=== PATIENT | female | born 1985 | race African-American/Black ===

== ENCOUNTER 2020-01-27 18:25 | Emergency (ER) | payer OTHER ==
[2020-01-27 18:41] VITALS: BP 132/95; PULSE 98; TEMP 98.4; BMI 35.6
[2020-01-27 19:00] LABS: HCG,QUALITATIVE URINE Negative
[2020-01-27] MEDS ORDERED: SODIUM CHLORIDE 1,000 ML IV STA (19:38)
[2020-01-27 20:08] LABS: INR 1.15 (0.82-1.09); PROTHROMBIN TIME (PATIENT) 12.8 SEC (10.2-13.0)
[2020-01-27 20:11] LABS: HEMATOCRIT 39.6 % (32.4-45.2); HEMOGLOBIN 13.5 GM/dl (10.7-15.3); MCHC 34.2 g/dl (32.0-36.0); MEAN CELL VOLUME 76.2 fl (80-96); MEAN PLT VOLUME 10.1 fl (7.5-11.1); PLATELET COUNT 339 K/MM3 (134-434); RDW 13.5 % (11.6-15.6)
[2020-01-27 20:13] LABS: ALBUMIN 4.4 g/dl (3.4-5.0); BILIRUBIN,TOTAL 0.6 mg/dl (0.2-1); CREATININE 0.6 mg/dl (0.55-1.3); TOT PROT 8.1 g/dl (6.4-8.2)
[2020-01-27 20:31] LABS: PLATELET ESTIMATE ADEQUATE
[2020-01-27] MEDS ORDERED: CEFTRIAXONE 250 MG in DEXTROSE 5%-WATER - 50 ML IVPB ONE (23:25)
[2020-01-27] MEDS ORDERED: KETOROLAC TROMETHAMINE 30 MG/1 ML VIAL IVPUSH ONE (23:26)
[2020-01-27] MEDS ORDERED: KETOROLAC TROMETHAMINE 30 MG/1 ML VIAL ONE (23:29)
[2020-01-27] MEDS ORDERED: DOXYCYCLINE HYCLATE 100 MG CAPSULE PO ONE ×2 (23:34→23:36)
--- NOTE | 2020-01-28 00:53 | PDOC ---
Documentation entered by Jose Enrique Prieto SCRIBE, acting as scribe for Cydney John MD. Cydney John MD: This documentation has been prepared by the scribe, Jose Enrique Prieto SCRIBE, under my direction and personally reviewed by me in its entirety. I confirm that the documentation accurately reflects all work, treatment, procedures, and medical decision making performed by me. History of Present Illness - General Chief Complaint: Pain Stated Complaint: PELVIS PAIN Time Seen by Provider: 01/27/20 19:23 History Source: Patient Exam Limitations: No Limitations - History of Present Illness Initial Comments: 01/27/20 19:58 The patient is a 34 year old female with a significant past medical history of prediabetes, ovarian cyst (previously drained), blood transfusions (secondary to heavy menses x2 17) who presents to the ED with continuous pelvic pain that radiates to the back with mild nausea which began five days ago. As per patient, her symptoms initially onset 5 days ago and she has taken ibuprofen, acetaminophen, motrin, excedrin, and midol without relief. As per patient at bedside, she was evaluated at urgent care today and advised to report to the ED for further evaluation for pain and sugar in urine. Patient reports LMP as 6/8 but denies possibility of being . Patient reports menstruation became regular about two years ago. Her last BM was this morning and described as normal. Patients last glucose testing was Feb 2019. Patient denies dysuria, vaginal discharge, constipation, and diarrhea. Allergies: NKDA Family Hx: Strong family history of DM (mother, grandmother, great grandmother, uncle, and cousins). 01/27/20 20:00 Past History - Medical History Allergies/Adverse Reactions: Allergies Allergy/AdvReac Type Severity Reaction Status Date / Time No Known Allergies Allergy Verified 01/27/20 18:35 Home Medications: Ambulatory Orders Doxycycline Hyclate [Vibramycin -] 100 mg PO BID #20 cap 01/27/20 COPD: No - Psycho-Social/Smoking History Smoking History: Current every day smoker Number of Cigarettes Smoked Daily: 6 Information on smoking cessation initiated: Yes - Substance Abuse Hx (Audit-C & DAST Scrn) How often the patient has a drink containing alcohol: Monthly or less How often the patient has six or more drinks on one occasion: Never Score: In Men: 4 or > Positive; In Women: 3 or > Positive: 1 Screen Result (Pos requires Nsg. Audit-10AR): Negative In the last yr the pt used illegal drug/Rx for NonMed reason: No Score: Yes response is considered Positive: 0 Screen Result (Positive result requires Nsg. DAST-10): Negative Review of Systems - Review of Systems Able to Perform ROS?: Yes Comments:: 01/27/20 19:58 CONSTITUTIONAL: Absent: fever, no chills, no fatigue EYES: Absent: visual changes ENT: Absent: ear pain, no sore throat CARDIOVASCULAR: Absent: chest pain, no palpitations RESPIRATORY: Absent: cough, no SOB GI: Absent: abdominal pain, no nausea, no vomiting, no constipation, no diarrhea GENITOURINARY: +pelvic pain Absent: dysuria, no frequency, no hematuria MUSKULOSKELETAL: Absent: back pain, no arthralgia, no myalgia SKIN: Absent: rash NEURO: Absent: headache All Other Systems: Reviewed and Negative *Physical Exam - Vital Signs Last Vital Signs Temp Pulse Resp BP Pulse Ox 98.4 F 98 H 16 132/95 99 01/27/20 18:34 01/27/20 18:34 01/27/20 18:34 01/27/20 18:34 01/27/20 18:34 - Physical Exam 01/27/20 20:15 GENERAL: The patient is awake, alert, and fully oriented, in no acute distress. HEAD:Normal with no signs of trauma. EYES: Pupils equal, round and reactive to light, extraocular movements intact, sclera anicteric, conjunctiva clear. ENT: +dry mucous membranes EXTREMITIES: Normal range of motion, no edema. ABDOMEN: + moderate Bilateral Lower Quadrant tenderness, Left Lower Quadrant mild rebound NEUROLOGICAL: Normal speech, normal gait. PSYCH: Normal mood, normal affect. SKIN: Warm, Dry, normal turgor, no rashes or lesions noted. PELVIC EXAM External genitalia normal without lesions. +Vaginal vault has scant whitish vaginal discharge without blood. Cervix is long and closed. + moderate cervical motion tenderness. Uterus is nontender and normal in size. + Mild Bilateral Adnexal tenderness without palpable masses. ED Treatment Course - LABORATORY CBC & Chemistry Diagram: 01/27/20 19:50 01/27/20 19:50 - ADDITIONAL ORDERS Additional order review: Laboratory Results 01/27/20 18:50 Urine Color Yellow Urine Appearance Clear Urine pH 5.5 Urine Protein Negative Urine Glucose (UA) 2+ H Urine Ketones Negative Urine Blood Negative Urine Nitrite Negative Urine Bilirubin Negative Urine Urobilinogen 0.2 Ur Leukocyte Esterase Negative Urine HCG, Qual Negative ED Progress Note - Progress Note Progress Note: As noted above, this 34-year-old woman with a history of prediabetes but otherwise healthy presents with few day history of lower abdominal/pelvic pain. No associated symptoms with the pain. No previous history of this type of pain and she denies hx PID/STD (patient denies multiple partners, stating that she has a steady girlfriend). She has a previous history of a left-sided ovarian cyst. Exam as noted with bilateral lower quadrant abdominal tenderness, left greater than right. Pelvic exam notable for significant cervical motion tenderness and left adnexal tenderness. No masses palpable. No evidence of abnormal vaginal discharge. Cervical swab fo chlamydia/gonorrhea sent. CBC and chemistry profile sent as well as urinalysis. Other than random glucose of 274, laboratory values are essentially normal Pelvic ultrasound performed to evaluate for tubo-ovarian abscess or other acute abnormality, especially in the left adnexa. Imaging study interpreted by Dr. Myers of the radiology staff: 3 cm fusiform structure in left adnexal, most consistent with hydrosalpinx. There is also some free fluid. No evidence of tubo-ovarian abscess or complex ovarian structure (there is a crenated cyst on the left side). Because of the pain/tenderness of the left adnexa as well as cervical motion tenderness, the patient will be treated empirically for pelvic inflammatory disease. The patient received 250 mg of ceftriaxone IV as well as doxycycline 100 mg by mouth. The patient will be treated with 10-day course of doxycycline 100 mg twice a day. Patient states that she currently does not have a convenience store manager but will find 1 and follow-up within the next few days. She should return to the emergency room if she has increasing pain, or develops f ever/vomiting. She should also follow-up with her general doctor regarding elevated blood sugar levels Discharge - Discharge Information Problems reviewed: Yes Clinical Impression/Diagnosis: Pelvic inflammatory disease Condition: Stable Disposition: HOME - Additional Discharge Information Prescriptions: Doxycycline Hyclate [Vibramycin -] 100 mg PO BID #20 cap - Follow up/Referral - Patient Discharge Instructions Patient Printed Discharge Instructions: DI for Pelvic Inflammatory Disease Additional Instructions: Doxycycline 100 mg twice a day for 10 days Ibuprofen/naproxen/acetaminophen as needed for pain Follow-up with a convenience store manager within the next 4 to 5 days Return to ER if you have worsening pain, vomiting or if you develop fever - Post Discharge Activity
== END 2020-01-27 23:49 | disposition home or self-care (01) ==
LOC: FER 18:25
PROC: 3E033GC Introduction of Other Therapeutic Substance into Peripheral Vein, Percutaneous Approach (ICD-10-PCS; principal; 2020-01-27)
PROC: 3E0337Z Introduction of Electrolytic and Water Balance Substance into Peripheral Vein, Percutaneous Approach (ICD-10-PCS; principal; 2020-01-27)
DX: N73.9 Female pelvic inflammatory disease, unspecified (principal)
CPT/HCPCS: 36415; 76856-TC; 80053; 81003; 84703; 85025; 85610; 87491; 87591; 99284-25